=== PATIENT | male | born 1965 | race Caucasian/White ===

== ENCOUNTER → 2016-08-01 | Day surgery (SDC) | payer OTHER ==
[~2016-08-01] MED LIST: NORCO 5-325 TA1 EACH PO; VALIUM10 MG PO
== END | disposition disaster alternative care site (69) ==
LOC: GPOC 07-30 15:00 → GSDC 12:32 → GPOC 13:00
PROC: 3E0R33Z Introduction of Anti-inflammatory into Spinal Canal, Percutaneous Approach (ICD-10-PCS; principal; 2016-08-01)
DX: G89.29 Other chronic pain (principal); M51.16 Intervertebral disc disorders with radiculopathy, lumbar region; Z98.890 Other specified postprocedural states
CPT/HCPCS: J1030; J1040

== ENCOUNTER → 2016-08-06 | Outpatient (CLI) | payer OTHER | END | disposition disaster alternative care site (69) | LOC: GRAD 08-05 10:00 | DX: M54.9 Dorsalgia, unspecified (principal); M40.294 Other kyphosis, thoracic region; M47.894 Other spondylosis, thoracic region ==

== ENCOUNTER 2016-08-16 14:00 | Observation (INO) | payer OTHER ==
[~2016-08-16] VITALS: Ht 203.2 cm; Wt 156.8 kg
--- NOTE | ~2016-08-16 | DS ---
PATIENT'S NAME: MAGUI MANN [facility] AGE: 51 Y [address] ROOM: [address] [address] LOCATION: [facility] ADMIT DATE: 08/30/2016 Discharge Summary DISCHARGE DATE: 08/31/2016 FAMILY PHYSICIAN: Jamal Barrera MD ATTENDING PHYSICIAN: Didi Klein REASON FOR ADMISSION: The patient was a planned admission for an elective procedure. Procedure was right L4-L5 microdiskectomy. The patient had presented with back pain and early right footdrop. TREATMENT RENDERED: The patient was taken to the operating room on the day of surgery and underwent the above procedure. His surgery was uncomplicated. Postoperative course was uneventful. The patient has done very well and as of this morning, he only has some incisional pain. The leg pain has resolved. His dressing is intact. The patient is being discharged home today and will be followed up in 2 weeks' time to see how he is doing. FINAL DIAGNOSIS: Right-sided L4-L5 disk herniation. DIDI KLEIN MD CNO/modl /[id number] CC: Jamal Barrera MD d: 08/31/162001 t: 09/04/16 1647, DISCHARGE SUMMARY
--- NOTE | ~2016-08-16 | OR ---
PATIENT'S NAME: MAGUI MANN [facility] AGE: 51 Y [address] ROOM: [address] [address] LOCATION: [facility] ADMIT DATE: 08/30/2016 OR/Procedure Report DISCHARGE DATE: 08/31/2016 FAMILY PHYSICIAN: Jamal Barrera MD ATTENDING PHYSICIAN: Didi Putnam SURGEON: Didi Putnam MD [employer] REPAIRER: Shin Weinstein. DATE OF PROCEDURE: 08/30/2016 PREOPERATIVE DIAGNOSIS: Lumbar disk herniation. POSTOPERATIVE DIAGNOSES: Lumbar disk herniation. PROCEDURE PERFORMED: 1. Right L4-5 hemilaminotomy, medial facetectomy, foraminotomy, and diskectomy. 2. Use of operative microscope. ANESTHESIA: General. ANESTHESIA PROVIDER: Cosmo Mora MD HISTORY: This patient is a 51-year-old gentleman who presented with back pain. He also had some right foot weakness almost as if he was developing a foot drop. MRI scan showed a right L4-5 disc herniation with a part of the disc migrating rostrally and compressing the right L4 nerve roots. With the risk of footdrop and the severity of the patient's pain, surgery was recommended. The above procedure, benefits and risks were discussed with the patient and with his consent, he was brought to the operating room for surgery. PROCEDURE IN DETAIL: In the operating room, the patient was placed in a supine position. Anesthesia was induced and he was intubated. He was then rolled to a prone position on a Gurinder table taking care to protect all pressure points. The incision line was marked out in the midline of the lower back. The whole area was prepped and draped in a sterile fashion. Local anesthesia was infiltrated. The #10 blade was used to open the incision and deepen it to the fascial layer. Self-retaining retractors were placed. The Bovie was used to open the fascia and to deepen the incision until the tips of the spinous processes became visible. Paraspinous muscles were dissected of the spinous processes and laminae of L4 and L5 on the right-hand side. I also exposed the left side because it was necessary to open both sides so as to put the retractor down and visualize the interlaminar space. I could not find a retractor that could do so with just unilateral exposure. Having got to the L4-5 interlaminar space, x-ray was obtained to verify the level. Microscope PATIENT'S NAME: MAGUI MANN [facility] AGE: 51 Y [address] ROOM: [id number] [place], [place] [address] LOCATION: [facility] ADMIT DATE: 08/30/2016 OR/Procedure Report DISCHARGE DATE: 08/31/2016 FAMILY PHYSICIAN: Jamal Barrera MD ATTENDING PHYSICIAN: Didi Putnam N was brought in at this point and under microscopic vision, the adjacent edges of the right L4 and L5 lamina were drilled down. The medial facet was also drilled down. The yellow ligament was removed to expose the dura. Knowing that the disk fragments had migrated cephalad, it was necessary to remove almost the entire stephanie-lamina of L4 on the right side to get to where the disc piece was. The right L4 nerve root was visualized. There was indeed a small amount of disk material that had pushed up against this nerve. This disk was close to the disk space at L4-5 on the cranial side of it. Working very carefully, the nerve root retractor was used to retract the dura. The disk appeared to be in the axilla of the nerve root. The disk was incised and pituitary rongeur was used to pull out disk material. The down-pushing curette was used to push down more disk, which was again removed with a pituitary rongeur. The compression continued until I felt that the nerve root was completely decompressed. A ball probe was used to feel around the ventral surface of the nerve and there was no compression. The foramen was also explored and there was no constriction. The right L5 nerve root was also visualized and was not under any compression. Irrigation was used to wash out the debris and hemostasis was achieved. Bone wax was used to wax the edges. The retractors were removed. The incision was then closed using appropriate suture materials. A sterile dressing was applied. The patient was rolled back to a supine position, his anesthesia was reversed, he was extubated and taken to the recovery room to complete his recovery. I was present at and performed every aspect of this procedure, assisted at some stages of operating room nurses. There were no apparent intraoperative complications. Swabs, needles, and instruments were all accounted for at the end of the case. Estimated blood loss was 200 mL and there was no reason for blood transfusion. I expect the patient to benefit from this procedure. DIDI PUTNAM MD CNO/modl /[id number] CC: Jamal Barrera MD d: 08/31/16 1355 t: 09/04/16 1644, OPERATIVE SUMMARY
--- NOTE | 2016-08-30 19:20 | NUR ---
LATE ENTRY: 1640 RECIEVED PATIENT INTO PACU. ORAL AIRWAY IN PLACE. PATIENT'S VS STABLE. GOOD AIR EXCHANGE AND SATS 94% WITH SIMPLE MASK. 1650 PATIENT STILL SEDATED. NOT RESPONDING TO VERBAL STIMILUS. WITHDRAWS TO PAINFUL STIMILUS. 1700 CONTINUES TO BE SEDATED. NOT RESPONDING TO VERBAL STIMILUS AT THIS TIME 1710 DR DICKENS IN AND WAKES PATIENT UP WITH STIMILUS AND DC'S AIRWAY. PATIENT CONTINUES TO SLEEP BUT DID OPEN EYES TO VERBAL STIMILUS. 1720 STARTING TO WAKE UP A LITTLE. PULLING AT BLANKETS AND IS VERY HOT AND SWEATY. DENIES BEING A DIABETIC. HE IS SLIGHTLY AGGITATED AT THIS TIME. 1740 STARTING TO COOL DOWN AND WAKE UP A LITTLE MORE. DENIES PAIN. 1751 ORAL PAIN MEDS ADMINISTERED FOR ANTICIPATED PAIN. 1830 PATIENT TRANSPORTED VIA CART TO [address] [place] [address] CRITERIA MET PER PACU PROTOCOL. KARINA IS AWAKE, ALERT AND ORIENTATED.
--- NOTE | 2016-08-31 04:28 | NUR ---
A&O. Cooperative with cares. [place] Q4H PRN for pain. Given last at 0253. NS @ 75/hr. Dressing CDI. Denies numbness/tingling. RA @ 0230. Voiding well per urinal. No n/v after surgery. Has had several cups of chicken broth, has declined sandwich or other food. Continue plan of care and discharge when appropriate, possibly today.
[2016-08-31] MEDS ORDERED: NORCO 5-325 TA1 EACH PO (11:15)
[2016-08-31] MEDS ORDERED: VALIUM10 MG PO (11:16)
--- NOTE | 2016-08-31 11:30 | NUR ---
PT GIVEN DISCHARGE INSTRUCTIONS AND VOICES UNDERSTANDING. AMBULATES IN THE ROOM WITHOUT DIFFICULTY. DRESSING AND MEDICATIONS REVIEWED WITH PT. ESCORTED TO [facility] BY TRANSPORT TEAM. SON AT PT'S SIDE.
== END 2016-08-31 13:47 | disposition disaster alternative care site (69) ==
LOC: G3N 08-30 10:27
PROVIDERS: ADMIT Neurological Surgery
PROC: 0SB20ZZ Excision of Lumbar Vertebral Disc, Open Approach (ICD-10-PCS; principal; 2016-08-30)
PROC: 01NB0ZZ Release Lumbar Nerve, Open Approach (ICD-10-PCS; 2016-08-30)
DX: M51.16 Intervertebral disc disorders with radiculopathy, lumbar region (principal); E78.2 Mixed hyperlipidemia; R73.03 Prediabetes; E66.01 Morbid (severe) obesity due to excess calories; Z68.38 Body mass index [BMI] 38.0-38.9, adult; Z98.890 Other specified postprocedural states; M51.26 Other intervertebral disc displacement, lumbar region
CPT/HCPCS: G0378; J0690; J1100; J2001; J2250; J2405; J3010; J7030; J7120